=== PATIENT | female | born 1960 | race Caucasian/White ===

== ENCOUNTER 2024-04-27 01:05 | Emergency (ER) | payer OTHER, SELFPAY ==
--- NOTE | ~2024-04-27 | CT_ITS ---
EXAMINATION: CT HEAD WITHOUT CONTRAST CT CERVICAL SPINE WITHOUT CONTRAST CLINICAL INFORMATION: Trauma. Fall. COMPARISON: None available. TECHNIQUE: Contiguous axial imaging was performed through the head and cervical spine without intravenous administration of contrast. Sagittal and coronal reformatted images also obtained. This CT examination was performed using dose optimization techniques as appropriate, variously including the following: *Automated exposure control *Adjustment of mA and/or kV according to patient size (this includes techniques or standardized protocols for targeted exams where dose is matched to indication/reason for exam; i.e. extremities or head) *Use of iterative reconstruction technique DLP: 608+224 mGy-cm FINDINGS: The lateral, third and fourth ventricles are normally outlined. The cortical sulci and basal cisterns are normally as well. There is no acute territorial defects, hemorrhage or midline shift. The extra-axial spaces are unremarkable. Calvarium/scalp: Calvarium is intact. There is left parietal scalp soft tissue swelling. Maxillofacial sinuses and mastoids: Clear as visualized. Cervical spine: The alignment is normal. There is diffuse mild to moderate cervical disc degenerative change with loss of disc space, endplate change and posterior osteophytes associated with diffuse mild facet osteoarthritic hypertrophic change with multilevel mild spinal canal and neuroforaminal narrowing. The bone mineralization is normal. No fracture is seen. The soft tissues are unremarkable. CT/CT head/brain wo IV con IMPRESSION: 1. No acute intracranial process seen. Left parietal scalp soft tissue swelling. 2. There is no acute cervical spine fracture or malalignment. There is diffuse degenerative disc changes and facet joint arthropathy with multilevel mild spinal canal and neuroforaminal narrowing. Electronically signed by: Arnulfo Schneider MD 04/27/2024 04:13 AM EDT
--- NOTE | ~2024-04-27 | CT_ITS ---
EXAMINATION: CT HEAD WITHOUT CONTRAST CT CERVICAL SPINE WITHOUT CONTRAST CLINICAL INFORMATION: Trauma. Fall. COMPARISON: None available. TECHNIQUE: Contiguous axial imaging was performed through the head and cervical spine without intravenous administration of contrast. Sagittal and coronal reformatted images also obtained. This CT examination was performed using dose optimization techniques as appropriate, variously including the following: *Automated exposure control *Adjustment of mA and/or kV according to patient size (this includes techniques or standardized protocols for targeted exams where dose is matched to indication/reason for exam; i.e. extremities or head) *Use of iterative reconstruction technique DLP: 608+224 mGy-cm FINDINGS: The lateral, third and fourth ventricles are normally outlined. The cortical sulci and basal cisterns are normally as well. There is no acute territorial defects, hemorrhage or midline shift. The extra-axial spaces are unremarkable. Calvarium/scalp: Calvarium is intact. There is left parietal scalp soft tissue swelling. Maxillofacial sinuses and mastoids: Clear as visualized. Cervical spine: The alignment is normal. There is diffuse mild to moderate cervical disc degenerative change with loss of disc space, endplate change and posterior osteophytes associated with diffuse mild facet osteoarthritic hypertrophic change with multilevel mild spinal canal and neuroforaminal narrowing. The bone mineralization is normal. No fracture is seen. The soft tissues are unremarkable. CT/CT cervical spine wo IV con IMPRESSION: 1. No acute intracranial process seen. Left parietal scalp soft tissue swelling. 2. There is no acute cervical spine fracture or malalignment. There is diffuse degenerative disc changes and facet joint arthropathy with multilevel mild spinal canal and neuroforaminal narrowing. Electronically signed by: Arnulfo Schneider MD 04/27/2024 04:13 AM EDT
[2024-04-27 01:12] VITALS: BP 136/78; PULSE 78; O2SAT 97
[2024-04-27 01:15] VITALS: BP 134/63; PULSE 74; RESP 16; TEMP 36.7; O2SAT 96
[2024-04-27 01:18] VITALS: BP 134/63; PULSE 74; RESP 16; TEMP 36.6; O2SAT 96; BMI 18.8
[2024-04-27 01:23] LABS: MANUAL DIFF FLAG NO
[2024-04-27 01:26] LABS: Basophils Percent Auto 0.5 % (0-2); Eosinophils Absolute Auto 0.1 X10*3/uL (0.0-0.4); Hematocrit 29.9 % (37.0-47.0); Hemoglobin 9.8 g/dl (12.0-16.0); Imm Gran Abs Auto 0.04 X10*3/uL (0.00-0.03); Imm Gran Pct Auto 0.5 % (0.0-0.4); Lymphocytes Absolute Auto 1.4 X10*3/uL (1.2-4.9); Lymphocytes Percent Auto 17.2 % (20-40); Mean Corpuscular HGB Conc 32.8 g/dl (31.0-35.0); Mean Corpuscular Hemoglobin 29.3 pg (27.0-33.0); Mean Corpuscular Volume 89.3 fL (80.0-98.0); Mean Platelet Volume 8.6 fL (9.4-12.3); Monocytes Absolute Auto 0.6 X10*3/uL (0.1-1.2); Monocytes Percent Auto 7.5 % (2-11); Neutrophils Absolute Auto 6.1 x10*3/uL (2.0-8.3); Neutrophils Percent Auto 73.3 % (45-73); Platelet Count 249 X10*3/uL (160-400); Red Blood Count 3.35 X10*6/uL (4.20-5.50); White Blood Count 8.3 X10*3/uL (4.8-10.8)
[2024-04-27 01:38] LABS: Anion Gap 14 (12-20); Blood Urea Nitrogen 10 mg/dL (9-16); Calcium 9.4 mg/dL (8.4-10.2); Carbon Dioxide 26 mmol/L (22-29); Chloride 106 mmol/L (96-108); Creatinine Clr Calc Pharmacy 50.6; Estimated Glomerular Filt Rate 57; Glucose Random 129 mg/dL (60-115); Potassium 4.1 mmol/L (3.3-5.1); Sodium 142 mmol/L (135-145)
[2024-04-27 03:42] VITALS: BP 140/62; PULSE 91; RESP 16; TEMP 36.8; O2SAT 98
--- NOTE | 2024-04-27 03:44 | ED_ITS ---
HPI - Fall General Chief Complaint: Fall Stated Complaint: FALL Time Seen by Provider: 04/27/24 01:09 Source: patient Mode of arrival: ambulatory Limitations: no limitations History of Present Illness ED Provider: Dr. Anton HPI Narrative: patient is at [facility] for bipolar exacerbation, she has a history of frequent falls and should be using her walker, tonight she fell and hit her head against the wall, no LOC. [facility] was concerned because they thought her mental status was worse. complaint: fall Onset (ago): minute(s) Fall from: standing Fall witnessed: yes, by living facility staff Place fall occurred: other (psychiatric facility) Loss of consciousness: none Related Data Allergies Allergy/AdvReac Type Severity Reaction Status Date / Time No Known Allergies Allergy Verified 04/27/24 01:19 Review of Systems 2 Review of Systems: Yes Unobtainable due to mental status Neurologic: Denies Sensory deficit (Neuro) [facility] Social History Social History Advance Directives: No Advance Directives Information Provided: Yes Physical Exam 2 Vital Signs: Vital Signs: Last Vital Signs Temp 98.2 F 04/27/24 03:42 Pulse 91 04/27/24 03:42 Resp 16 04/27/24 03:42 BP 140/62 H 04/27/24 03:42 Pulse Ox 98 04/27/24 03:42 O2 Del Method Room Air 04/27/24 03:42 BMI result Body Mass Index 18.8 Const: Other: cachectic, unkept, chronically ill female Orientation/consciousness: oriented to person Limitations: altered mental status HEENT: Head: Yes normal to inspection Ears: external ears normal General nose exam: Normal external nose present Mouth: Normal oral and palatal mucosa present and oropharynx normal Throat: Yes posterior oropharynx normal Eyes: General: appearance normal, both eyes and all related structures Neck: Other: supple Neck: Yes normal visual inspection Chest: Chest palpation & inspection: normal inspection of the chest Resp: Auscultation: clear to auscultation bilaterally Cardio: Jugular venous distension: no JVD Rate: regular rate Rhythm: r egular rhythm Heart sounds: S1 normal heart sound present and S2 normal heart sound present GI: Inspection: Yes normal to inspection Palpation (GI): Soft to palpation, nontender and No hepatosplenomegaly present Auscultation: normal bowel sounds : General: Yes no CVA tenderness Back/Spine/Pelvis: Back: no CVA tenderness Skin: Other: multiple ecchymosis Neuro: General: oriented to person Cranial nerves: Yes CN's II-XII intact bilaterally Motor exam (neuro): 5/5 motor strength present throughout S ensory Exam: No Sensory deficit (Neuro) Extrem: General: Yes normal to inspection Psych: Appearance: grossly normal Course Reevaluation(s) Reevaluation #1: Patient with severely poor mentation at baseline, no evidence of cerebral bleed or cspine fracture will dc back to [facility] Time: 04:02 Medical Decision Making Differential Diagnosis Differential Diagnoses: The differential diagnosis associated with the presentation includes (subdural hematoma, cerebral contusion, cervical fracture, bipolar) Admission/Observation Consideration of admission/observation: Escalation of care including admission/observation considered (upon arrival patient was considered for admission) Lab Data 04/27/24 01:20 04/27/24 01:20 Labs: Lab Results 04/27/24 Range/Units 01:20 WBC 8.3 (4.8-10.8) X10*3/uL RBC 3.35 L (4.20-5.50) X10*6/uL Hgb 9.8 L (12.0-16.0) g/dl Hct 29.9 L (37.0-47.0) % MCV 89.3 (80.0-98.0) fL MCH 29.3 (27.0-33.0) pg MCHC 32.8 (31.0-35.0) g/dl RDW 13.0 (11.0-16.0) % Plt Count 249 (160-400) X10*3/uL MPV 8.6 L (9.4-12.3) fL Immature Gran % (Auto) 0.5 H (0.0-0.4) % Neut % (Auto) 73.3 H (45-73) % Lymph % (Auto) 17.2 L (20-40) % Burt % (Auto) 7.5 (2-11) % Eos % (Auto) 1.0 (0-4) % Baso % (Auto) 0.5 (0-2) % Lymph # (Auto) 1.4 (1.2-4.9) X10*3/uL Burt # (Auto) 0.6 (0.1-1.2) X10*3/uL Eos # (Auto) 0.1 (0.0-0.4) X10*3/uL Baso # (Auto) 0.0 (0.0-0.2) X10*3/uL Abs Immat Gran (auto) 0.04 H (0.00-0.03) X10*3/uL Absolute Neuts (auto) 6.1 (2.0-8.3) x10*3/uL Absolute Nucleated RBC 0.000 (0.0-0.012) X10*3/uL Nucleated RBC % (auto) 0.0 (0.0-0.2) /100WBC Sodium 142 (135-145) mmol/L Potassium 4.1 (3.3-5.1) mmol/L Chloride 106 (96-108) mmol/L Carbon Dioxide 26 (22-29) mmol/L Anion Gap 14 (12-20) BUN 10 (9-16) mg/dL Creatinine 0.99 (0.5-1.4) mg/dL Estim Creat Clear Calc 50.6 Estimated GFR 57 Random Glucose 129 H (60-115) mg/dL Calcium 9.4 (8.4-10.2) mg/dL Independent Interpretation I performed an independent interpretation of an: CT Scan (brain: atrophy, cervical: no fracture) Independent Historian Clinical information obtained from an independent historian. History obtained from or confirmed by: EMS Chronic Conditions Patient?s care impacted by: Other (severe psychiatric disease) Discharge Plan Discharge Clinical Impression: Contusion of head Patient Disposition: Home, Self-Care Instructions: Head Injury (ED) Referrals: Physician,Unknown J [Primary Care Provider] - 1 week Print Language: Belarusian
--- NOTE | 2024-04-27 03:47 | PC.NURSE ---
Pt at the edge of the bed. Pt redirected back into bed. Pt calm and cooperative Plan of care ongoing.
--- NOTE | 2024-04-27 04:12 | PC.NURSE ---
Pt attempting to get oob. Pt at the edge of the bed. Pt redirected back into bed. Charge advised and sitter placed. Plan of care ongoing.
[2024-04-27 05:18] VITALS: BP 140/62; PULSE 91; RESP 16; TEMP 36.8; O2SAT 98
--- NOTE | 2024-04-27 05:20 | PC.NURSE ---
This RN attempted to reach shanita salmeron for report no answer
== END 2024-04-27 05:22 | disposition home or self-care (01) ==
PROVIDERS: Emergency Provider Emergency Medicine
DX: S00.83XA Contusion of other part of head, initial encounter (principal); R51.9 Headache, unspecified; M54.2 Cervicalgia; W01.10XA Fall on same level from slipping, tripping and stumbling with subsequent striking against unspecified object, initial encounter; Y93.89 Activity, other specified; Y92.89 Other specified places as the place of occurrence of the external cause; Y99.8 Other external cause status; Z79.899 Other long term (current) drug therapy
CPT/HCPCS: 36415; 70450; 72125; 80048; 85025; 99284

== ENCOUNTER 2024-04-27 18:57 | Emergency (ER) | payer OTHER, SELFPAY ==
--- NOTE | ~2024-04-27 | CT_ITS ---
EXAMINATION: CT HEAD WITHOUT CONTRAST CT CERVICAL SPINE WITHOUT CONTRAST CLINICAL INFORMATION: Fall. History. COMPARISON: None. TECHNIQUE: Imaging was performed from the skull base to vertex without intravenous administration of contrast. In addition, helical noncontrast CT imaging was acquired through the cervical spine and source images were reviewed along with axial reconstructions and sagittal and coronal MPRs. [This CT examination was performed using dose optimization techniques as appropriate, variously including the following: *Automated exposure control *Adjustment of mA and/or kV according to patient size (this includes techniques or standardized protocols for targeted exams where dose is matched to indication/reason for exam; i.e. extremities or head) *Use of iterative reconstruction technique] DLP: 1433 mGy-cm FINDINGS: HEAD: No intracranial mass, hemorrhage, or midline shift is visualized. The ventricles and sulci are proportional. No extra-axial collections are identified. The paranasal sinuses and mastoid air cells are well aerated. CERVICAL SPINE: There is no evidence of acute cervical spine fracture. Vertebral bodies remain normal in height. Cervical vertebrae have normal alignment. There is multilevel degenerative spondylosis of the cervical spine with disc height narrowing and endplate spurs and facet joint arthrosis No pre- or paravertebral soft tissue abnormality is identified. Limited assessment of the lung apices is unremarkable. CT/CT head/brain wo IV con IMPRESSION: 1. No acute intracranial pathology. 2. No CT evidence of acute cervical spine fracture or traumatic subluxation Electronically signed by: Alin Pace MD 04/27/2024 09:46 PM EDT
--- NOTE | ~2024-04-27 | CT_ITS ---
EXAMINATION: CT HEAD WITHOUT CONTRAST CT CERVICAL SPINE WITHOUT CONTRAST CLINICAL INFORMATION: Fall. History. COMPARISON: None. TECHNIQUE: Imaging was performed from the skull base to vertex without intravenous administration of contrast. In addition, helical noncontrast CT imaging was acquired through the cervical spine and source images were reviewed along with axial reconstructions and sagittal and coronal MPRs. [This CT examination was performed using dose optimization techniques as appropriate, variously including the following: *Automated exposure control *Adjustment of mA and/or kV according to patient size (this includes techniques or standardized protocols for targeted exams where dose is matched to indication/reason for exam; i.e. extremities or head) *Use of iterative reconstruction technique] DLP: 1433 mGy-cm FINDINGS: HEAD: No intracranial mass, hemorrhage, or midline shift is visualized. The ventricles and sulci are proportional. No extra-axial collections are identified. The paranasal sinuses and mastoid air cells are well aerated. CERVICAL SPINE: There is no evidence of acute cervical spine fracture. Vertebral bodies remain normal in height. Cervical vertebrae have normal alignment. There is multilevel degenerative spondylosis of the cervical spine with disc height narrowing and endplate spurs and facet joint arthrosis No pre- or paravertebral soft tissue abnormality is identified. Limited assessment of the lung apices is unremarkable. CT/CT cervical spine wo IV con IMPRESSION: 1. No acute intracranial pathology. 2. No CT evidence of acute cervical spine fracture or traumatic subluxation Electronically signed by: Alin Pace MD 04/27/2024 09:46 PM EDT
[2024-04-27 19:04] VITALS: BP 130/76; PULSE 88; O2SAT 95
[2024-04-27 19:09] VITALS: BP 129/54; PULSE 81; RESP 16; TEMP 36.6; O2SAT 99; BMI 20.4
--- NOTE | 2024-04-27 19:45 | PC.NURSE ---
pt from [facility] 1:1 sitter at bedside. +c-collar scans ordered. pt reports some nausea po zofran ordered per MD Collado verbal order. pt remains calm/cooperative nad.
[2024-04-27] MEDS: Ondansetron ODT 4 MG TAB.RAPDIS TRANSLINGU (20:03)
[2024-04-27 20:52] VITALS: BP 128/70; PULSE 97; RESP 16; TEMP 36.4; O2SAT 97
[2024-04-27 23:38] VITALS: BP 153/52; PULSE 88; RESP 17; TEMP 36.7; O2SAT 99
[2024-04-27 23:46] LABS: Appearance Urine Turbid; Color Urine Dark Yellow; Glucose Urine UA Negative (Negative); Leukocyte Esterase Urine Negative (Negative); Nitrite Urine Negative (Negative); PH 5.5 (5.0-9.0); Urine Blood Negative (Negative); Urine Ketones 15 mg/dL (Negative); Urine Protein Trace mg/dL (Neg-Trace)
--- NOTE | 2024-04-28 | PC.NURSE ---
pt tolerated straight cath, ua sent to lab,.
--- NOTE | 2024-04-28 00:07 | ED.FALL ---
HPI - Fall General Chief Complaint: Fall Stated Complaint: FALL + COLLAR + HEADSTRIKE Time Seen by Provider: 04/27/24 20:46 Source: EMS Mode of arrival: EMS Limitations: other History of Present Illness ED Provider: Dr. Soumya Collado HPI Narrative: patient comes to the emergency room from [facility]. Patient comes in for a fall. Patient had a fall earlier this morning, CT scan of the head and neck were normal. Patient is known to have a balance problem which is chronic. This time, patient fell from a standing position, hit her head on the floor, no loss of consciousness, patient is not on blood thinners. Related Data Allergies Allergy/AdvReac Type Severity Reaction Status Date / Time No Known Allergies Allergy Verified 04/27/24 19:13 Review of Systems Review of Systems: Constitutional : No Weight loss, No Fever, No Chills, No Night Sweats, No Fatigue, No Malaise ENT/Mouth : No Hearing loss, No Ear Pain, No Nasal Congestion, No Sinus Pain, No Hoarseness, No sore throat, No Rhinorrhea, No Swallowing Difficulty Eyes: No Eye Pain, No Swelling, No Redness, No Foreign Body, No Discharge, No Vision Changes Cardiovascular : No Chest Pain, No SOB, No Dyspnea on Exertion, No Orthopnea, No Edema, No Palpitations Respiratory : No Cough, No Sputum, No Wheezing, No Smoke Exposure, No Dyspnea Gastrointestinal : Complaining of nausea. No vomiting. No Diarrhea, No Constipation, No abdominal Pain, No Hematochezia, No Melena Genitourinary : no irregular bleeding, No Dysuria, No Urinary Frequency, No Hematuria, No Urinary Incontinence, No Urgency, No Flank Pain, No Urinary Flow Changes, No Hesitancy Musculoskeletal : No joint pain, No Myalgias, No Joint Swelling Skin : No Skin Lesions, No rash Neuro : No Weakness, No Numbness, No Paresthesias, No Loss of Consciousness, No Dizziness, No Headache Psych : No Anxiety/Panic, No Depression, No SI/HI/AH/VH, No Social Issues, Heme/Lymph: No Bruising, No Bleeding,No Lymphadenopathy Endocrine : No Polyuria, No Polydipsia, No Temperature Intolerance PMFSH Social History Social History Advance Directives: No Advance Directives Information Provided: No Physical Exam Vital Signs: Vital Signs: Last Vital Signs Temp 98.0 F 04/27/24 23:38 Pulse 88 04/27/24 23:38 Resp 17 04/27/24 23:38 BP 153/52 H 04/27/24 23:38 Pulse Ox 99 04/27/24 23:38 O2 Del Method Room Air 04/27/24 23:38 BMI result Body Mass Index 20.4 Const: Other: Appearance: Alert. Oriented X3. No acute distress. Eyes: Pupils equal, round and reactive to light. ENT: Pharynx normal. Neck: On C-spine precautions, no palpable step-offs, no C-spine tenderness on palpation CVS: Normal heart rate and rhythm. Pulses normal. Normal S1 and S2 Respiratory: No respiratory distress. Breath sounds normal. No Wheezing. No rales Abdomen: Soft and nontender. No rigidity. No distention. Skin: Skin warm and dry. Normal skin color. Normal skin turgor. Extremities: No lower extremity edema. No Lacerations. No Rash Neuro: Oriented X 3. No motor deficit. No sensory deficit. Moving all extremities. No slurred speech. CN 2 through 12 grossly intact Psych: calm, cooperative, normal affect Medications Administered Discontinued Medications Generic Name Dose Route Start Last Admin Trade Name Freq PRN Reason Stop Dose Admin Ondansetron HCl 4 mg 04/27/24 19:44 04/27/24 20:03 Ondansetron Odt 4 Mg Tab.Gerberdis TRANSLINGU 04/27/24 19:45 4 mg ONCE ONE Administration Medical Decision Making Medical Decision Making [facility] Narrative: I reviewed patient's labs from earlier today, no obvious abnormality. Patient has anemia. Patient will follow-up with PCP. My interpretation of head CT and cervical spine CT: No obvious abnormality, no head bleed, no fracture - patient was given medication for nausea. Patient has not vomited in the ED. Differential Diagnosis Differential Diagnoses: The differential diagnosis associated with the presentation includes ( unsteady gait, UTI) Lab Data [facility] Lab Attestation statement: I reviewed the patient's lab results. Labs: Lab Results 04/27/24 Range/Units 23:36 Urine Color Dark Yellow Urine Appearance Turbid Urine pH 5.5 (5.0-9.0) Ur Specific [place] 1.020 (1.005-1.025) Urine Protein Trace (Neg-Trace) mg/dL Urine Glucose (UA) Negative (Negative) mg/dL Urine Ketones 15 (Negative) mg/dL Urine Blood Negative (Negative) Urine Nitrite Negative (Negative) Ur Leukocyte Esterase Negative (Negative) Independent Interpretation I performed an independent interpretation of an: CT Scan Radiology Impression Discussion of test interpretation with radiology: I have reviewed the radiologist's reading. Radiologist Impression: HEAD: No intracranial mass, hemorrhage, or midline shift is visualized. The ventricles and sulci are proportional. No extra-axial collections are identified. The paranasal sinuses and mastoid air cells are well aerated. CERVICAL SPINE: There is no evidence of acute cervical spine fracture. Vertebral bodies remain normal in height. Cervical vertebrae have normal alignment. There is multilevel degenerative spondylosis of the cervical spine with disc height narrowing and endplate spurs and facet joint arthrosis No pre- or paravertebral soft tissue abnormality is identified. Limited assessment of the lung apices is unremarkable. CT/CT cervical spine wo IV con IMPRESSION: 1. No acute intracranial pathology. 2. No CT evidence of acute cervical spine fracture or traumatic subluxation Critical Care Time Critical Care Time Critical Care Time: Yes Total Critical Care Time: 35 Attestation: I have personally provided critical care time. Time includes review of lab data, radiology results, discussion with consultants, and monitoring for potential decompensation. Intervention performed as documented. Discharge Plan Discharge Clinical Impression: Multiple falls, Contusion of head Patient Disposition: Home, Self-Care Instructions: Head Injury (ED) Additional Instructions: Please follow-up with your primary care physician tomorrow. If you have any worsening or new symptoms, please return to the emergency room or call 911 Print Language: Estonian
--- NOTE | 2024-04-28 00:40 | PC.NURSE ---
report given to Carrie at [facility], awaiting ems transfer.
[2024-04-28 01:26] VITALS: BP 153/52; PULSE 88; RESP 17; TEMP 36.7; O2SAT 99
== END 2024-04-28 01:26 ==
PROVIDERS: Emergency Provider Emergency Medicine
DX: S00.93XA Contusion of unspecified part of head, initial encounter (principal); R51.9 Headache, unspecified; M54.2 Cervicalgia; R11.0 Nausea; D64.9 Anemia, unspecified; R30.0 Dysuria; W01.10XA Fall on same level from slipping, tripping and stumbling with subsequent striking against unspecified object, initial encounter; Y93.89 Activity, other specified; Y92.89 Other specified places as the place of occurrence of the external cause; Y99.8 Other external cause status; Z79.899 Other long term (current) drug therapy
CPT/HCPCS: 51701; 70450; 72125; 81003; 99283; 99284